=== PATIENT | female | born 1940 | race Asian ===

== ENCOUNTER 2019-08-05 13:26 | Emergency (ER) | payer MEDICARE ==
[~2019-08-05] VITALS: Ht 149.9 cm; Wt 47.6 kg
--- NOTE | 2019-08-05 13:28 | NUR ---
Placed in room 07 . Placed on radiographer cardiac catheterization, blood pressure machine and pulse oximeter. To gown for exam. Side rails up.
[2019-08-05 13:29] VITALS: BP_SYST 114
--- NOTE | 2019-08-05 13:30 | NUR ---
Patient brought in by ambulance to the ED c/o generalized weakness and near syncopal episode after a BM. Patient denied any chest pain or shortness of breath. Denied any fevers, chills, nausea or vomiting. Patient is alert and oriented x4, respirations even and unlabored, speaking in full sentences, ambulating using a walker. VSS, pain level 0/10. and son at bedside. Informed of the approximate wait time. Instructed to notify ED staff for any changes in condition or worsening of symptoms. Patient verbalized understanding.
--- NOTE | 2019-08-05 13:32 | NUR ---
ECG done at bedside as ordered by Dr. Mendez. Patient tolerated the procedure well. Report given to .
[2019-08-05] MEDS ORDERED: ISOS30TA6 PO (13:43)
[2019-08-05] MEDS ORDERED: LOSA25TA3 PO (13:43)
[2019-08-05] MEDS ORDERED: SIMV20TA2 PO (13:43)
[2019-08-05] MEDS ORDERED: MONT10TA25 PO (13:43)
[2019-08-05] MEDS ORDERED: ASPI-1153 PO (13:43)
[2019-08-05] MEDS ORDERED: CARV25TA55 PO (13:43)
[2019-08-05] MEDS ORDERED: GLUXR500 PO (13:43)
--- NOTE | 2019-08-05 14:05 | NUR ---
X-ray tech at bedside as ordered by Dr. Mnedez. Patient tolerated the procedure well.
--- NOTE | 2019-08-05 14:11 | NUR ---
quality control technician at bedside collecting blood specimen as ordered by Dr. Mendez. Patient tolerated the procedure well.
--- NOTE | 2019-08-05 14:30 | NUR ---
Patient unable to give urine sample at this time.
[2019-08-05 14:37] LABS: ANION GAP 6 (5-15); CHLORIDE 98 mmol/L (98-107); CREATININE 0.65 mg/dL (0.55-1.30); GLUCOSE 108 mg/dL (70-99); POTASSIUM 4.3 mmol/L (3.5-5.1); SODIUM SERUM 130 mmol/L (136-145); UREA NITROGEN, BLOOD 14 mg/dL (8-21)
[2019-08-05 14:46] LABS: ALANINE AMINOTRANSFERASE 25 U/L (12-78); ALBUMIN 1.9 g/dL (3.4-4.8); ASPARTATE AMINOTRANSFERASE 30 U/L (10-37); TOTAL BILIRUBIN 0.6 mg/dL (0.0-1.0)
[2019-08-05 14:51] LABS: HEMATOCRIT 32.1 % (36-48); HEMOGLOBIN 10.5 g/dL (12.0-16.0); MEAN CORPUSCULAR HEMOGLOBIN 30 pg (27-31); MEAN CORPUSCULAR HGB CONC 33 % (32-36); MEAN CORPUSCULAR VOLUME 90 fL (79.0-98.0); PLATELET COUNT (AUTO) 165 K/uL (130-430); RED BLOOD CELL COUNT(AUTO) 3.57 MIL/uL (4.2-6.2); RED CELL DISTRIBUTION WIDTH 17.5 % (9.0-15.0); WHITE BLOOD COUNT (AUTO) 5.4 K/uL (4.8-10.8)
[2019-08-05] MEDS ORDERED: NS 500 ML IV ONE (15:00)
[2019-08-05 15:25] LABS: ATYPICAL LYMPHOCYTES % 1 % (0-0); BAND % (MANUAL) 1 % (0-6); BASOPHILS % (MANUAL) 0 % (0-2); EOSINOPHILS % (MANUAL) 0 % (0-7); LYMPHOCYTES % (MANUAL) 22 % (20-46); MONOCYTES % (MANUAL) 15 % (0-11)
--- NOTE | 2019-08-05 16:09 | NUR ---
Patient's still trying to give us a urine sample. No respiratory distress at this time.
--- NOTE | 2019-08-05 16:47 | NUR ---
Patient still would like to try using a bedpan first before cathether. aware.
--- NOTE | 2019-08-05 17:00 | NUR ---
# 16 FR In and Out catheter with use of sterile technique. Immediate return of 600 ml clear yellow urine noted. Urine sample collected and sent to lab. Pt tolerated procedure well. Patient unable to toilet self.
--- NOTE | 2019-08-05 17:10 | NUR ---
ER Dr. Mendez at bedside re-examining the patient.
[2019-08-05 17:33] LABS: BILIRUBIN,URINE NEGATIVE (NEGATIVE); BLOOD, URINE NEGATIVE (NEGATIVE); CLARITY/URINE CLEAR (CLEAR); COLOR,URINE YELLOW (YELLOW); GLUCOSE,URINE NEGATIVE (NEGATIVE); KETONES,URINE NEGATIVE (NEGATIVE); LEUKOCYTE ESTERASE ,URINE NEGATIVE (NEGATIVE); NITRITE, URINE NEGATIVE (NEGATIVE); PROTEIN URINE NEGATIVE (NEGATIVE); UROBILINOGEN,URINE 0.2 (0.2-1.0)
--- NOTE | 2019-08-05 18:27 | NUR ---
Ambulated the patient at bedside. BP 103/48 HR 75 O2 sat 97 RR 18. Patient is able to tolerate the activity.
--- NOTE | 2019-08-05 19:00 | NUR ---
IV discontinued as ordered by Dr. Mendez. Catheter intact. Patient tolerated the procedure well.
[2019-08-05 19:14] VITALS: BP_SYST 108
== END 2019-08-05 19:14 | disposition home or self-care (01) ==
LOC: SED 13:26
DX: E87.1 Hypo-osmolality and hyponatremia (principal); D64.9 Anemia, unspecified; E46 Unspecified protein-calorie malnutrition; R53.1 Weakness; I10 Essential (primary) hypertension; E11.9 Type 2 diabetes mellitus without complications; Z68.21 Body mass index [BMI] 21.0-21.9, adult; Z88.8 Allergy status to other drugs, medicaments and biological substances; Z79.82 Long term (current) use of aspirin; Z79.899 Other long term (current) drug therapy
CPT/HCPCS: 36415; 71045; 80053; 81003; 84484; 85007; 85027; 93005; 99284; J7040